=== PATIENT | female | born 1965 | race Two or more races ===

== ENCOUNTER 2019-01-24 12:55 | Inpatient (IN) | payer OTHER ==
[2019-01-24] VITALS (9 sets, daily range): BP systolic 136–182; BP diastolic 85–100
[~2019-01-24] VITALS: Ht 167.6 cm; Wt 63.5 kg
[~2019-01-24 12:55] MED LIST: HYDROCHLOROTH12.5 MG ORAL; NORVASC10 MG ORAL; ceFAZolin 1gm IVPB IVPB ONE; celeBREX 200mg Cap **SURGERY PATIENTS ONLY ORAL ONE; oxyCONTIN 20mg tab ORAL ONE
[2019-01-24] MEDS ORDERED: NeoSporin Gu Irrig 1ml Amp IRRIG ONE (15:14)
[2019-01-24] MEDS ORDERED: Bacitracin 50000 Units Vial ONE (15:14)
[2019-01-24] MEDS ORDERED: oxyCONTIN 20mg tab ORAL ONE (15:15)
[2019-01-24] MEDS ORDERED: celeBREX 200mg Cap **SURGERY PATIENTS ONLY ORAL ONE (15:15)
[2019-01-24] MEDS ORDERED: LR 1000ml 1,000 ML IVLG SCH (15:21)
[2019-01-24] MEDS ORDERED: Sodium Chloride 10ml vial INJ ONE (15:27)
[2019-01-24] MEDS ORDERED: Lidocaine 1% MPF 10mg/ml 5ml ONE (15:27)
[2019-01-24] MEDS ORDERED: Ropivacaine 5mg/ml Vial 30ml INJ ONE (15:27)
[2019-01-24] MEDS ORDERED: Dexamethasone 4mg/ml vial ONE (15:27)
[2019-01-24] MEDS ORDERED: HYDROcodone/Acetamin 7.5/325 tab ORAL PRN (15:30)
[2019-01-24] MEDS ORDERED: Ketorolac 30mg Inj IV PRN ×2 (15:30)
[2019-01-24] MEDS ORDERED: HYDROcodone/Acetamin 5/325 tab ORAL PRN (15:30)
[2019-01-24] MEDS ORDERED: DiphenhydrAMINE 50mg/ml Inj IVP PRN (15:30)
[2019-01-24] MEDS ORDERED: Hydromorphone 0.5mg/0.5ml inj IVP PRN (15:30)
[2019-01-24] MEDS ORDERED: Labetalol 5mg/ml 20ml vial IV PRN (15:30)
[2019-01-24] MEDS ORDERED: Metoclopramide 10mg/2ml Inj IVP PRN (15:30)
[2019-01-24] MEDS ORDERED: Midazolam 2mg/2ml Inj IVP PRN (15:30)
[2019-01-24] MEDS ORDERED: Meperidine 50mg/ml Inj(FOR RIGORS ONLY) IVP PRN (15:30)
[2019-01-24] MEDS ORDERED: fentaNYL 100 mcg/2 mL IV PRN (15:30)
[2019-01-24] MEDS ORDERED: LORazepam Inj 2mg/ml 1ml IV PRN (15:30)
[2019-01-24] MEDS ORDERED: Atropine Sulfate 0.4mg/ml inj IVP PRN (15:30)
[2019-01-24] MEDS ORDERED: oxyCODONE HCL/Acetaminophen 5/325mg ORAL PRN (15:30)
--- NOTE | 2019-01-24 15:31 | Anethesia Preoperative Eval ---
Anesthesia Pre-op PMH/ROS General Date of Evaluation: Jan 24, 2019 Anesthesiologist: Marcelo ASA Score: ASA 2 Mallampati Score Class I : Soft palate, uvula, fauces, pillars visible Class II: Soft palate, uvula, fauces visible Class III: Soft palate, base of uvula visible Class IV: Only hard plate visible Mallampati Classification: Class II Surgeon: Tico Diagnosis: R Knee Pain Surgical Procedure: R Knee Total Arthroplasty Anesthesia History: none Family History: no anesthesia problems Allergies: Coded Allergies: No Known Allergies (Unverified , 01/23/19) Medications: see eMAR Patient NPO?: Yes NPO Date: Jan 24, 2019 NPO Time: 2100 Past Medical History Cardiovascular: Reports: HTN Gastrointestinal/Genitourinary: Reports: GERD Neurologic/Psychiatric: Reports: other - Headaches Hematology/Immune: Reports: anemia Anesthesia Pre-op Phys. Exam Physician Exam Last Vital Signs Date Time Temp Pulse Resp B/P (MAP) Pulse Ox O2 Delivery O2 Flow Rate FiO2 01/24/19 13:39 Room Air 01/24/19 13:38 97.7 57 18 136/85 (102) 98 Constitutional: NAD Neurologic: CN 2-12 intact Cardiovascular: RRR Respiratory: CTA Gastrointestinal: S/NT/ND Airway Exam Mallampati Score: Class II MO: limited ROM: limited Teeth: intact Anesthesia Pre-op A/P Risk Assessment & Plan Assessment: ASA 2 Plan: GA, FemAdd Block, SED Status Change Before Surgery: No Pre-Antibiotics Dru Gram Ancef IV Given Within 1 Hr of Incision: Yes Time Given: 16:24 Kyle Robertson MD Jan 24, 2019 15:31
--- NOTE | 2019-01-24 15:57 | Pre-Procedure Note/Attestation ---
Pre-Procedure Note/Attestation Complete Prior to Procedure Planned Procedure: right Procedure Narrative: knee replacement Indications for Procedure Pre-Operative Diagnosis: right knee posttraumactic arthritis Attestation I attest that I discussed the nature of the procedure; its benefits; risks and complications; and alternatives (and the risks and benefits of such alternatives ), prior to the procedure, with the patient (or the patient's legal senior customer service representative). I attest that, if there was a reasonable possibility of needing a blood transfusion, the patient (or the patient's legal senior customer service representative) was given the [facility] standardized written summary, pursuant to the [place] Blood Safety Act ([place] Health and Safety Code # 1645, as amended). I attest that I re-evaluated the patient just prior to the surgery and that there has been no change in the patient's H&P, except as documented below: Pro Doshi MD Jan 24, 2019 15:57
--- NOTE | 2019-01-24 15:57 | Operative Note - PDOC ---
Operative Note Operative Note Pre-op Diagnosis: right knee posttraumactic arthritis Procedure: see op report Post-op Diagnosis: same as pre-op plus Operative Findings: consistent w/pre-op dx studies Anesthesia: regional Specimen: none Complications: none Condition: stable Estimated Blood Loss: none Implant(s) used?: Yes Pro Doshi MD Jan 24, 2019 15:57
[2019-01-24] MEDS ORDERED: LR 1000ml ONE (16:00)
[2019-01-24] MEDS ORDERED: Propofol 200mg/20ml IV ONE (16:00)
[2019-01-24] MEDS ORDERED: oxyCODONE 5mg IR tab ORAL PRN (16:00)
[2019-01-24] MEDS ORDERED: Morphine Sulfate 2mg/ml Inj(IV/IM USE ONLY) IVP PRN (16:00)
[2019-01-24] MEDS ORDERED: Morphine Sulfate 4mg/ml Inj (IV USE ONLY) IVP PRN (16:00)
[2019-01-24] MEDS ORDERED: NS Irrig 1000ml ONE (16:00)
[2019-01-24] MEDS ORDERED: Sterile Water Irrig 1000ml IRRIG ONE (16:00)
[2019-01-24] MEDS ORDERED: Milk of Magnesia 30ml Ud ORAL PRN (16:00)
[2019-01-24] MEDS ORDERED: NS Irrig 1000ml IRRIG ONE ×2 (16:33→17:09)
[2019-01-24] MEDS ORDERED: Tranexamic Acid 1,000 MG in NS 65 ML IV ONE (16:45)
[2019-01-24] MEDS ORDERED: Tranexamic Acid 1,000 MG in NS 55 ML IV ONE (16:45)
--- NOTE | 2019-01-24 16:46 | 48 Hour Post Anesthesia Eval ---
Post Anesthesia Evaluation Procedure: R Knee Total Arthroplasty Date of Evaluation: Jan 24, 2019 Time of Evaluation: 20:23 Blood Pressure Systolic: 143 0: 84 Pulse Rate: 68 Respiratory Rate: 18 Temperature (Fahrenheit): 98.6 O2 Sat by Pulse Oximetry: 99 Airway: patent Nausea: No Vomiting: No Pain Intensity: 3 Hydration Status: adequate Cardiopulmonary Status: Stable Mental Status/LOC: patient returned to baseline Follow-up Care/Observations: 0 Post-Anesthesia Complications: 0 Follow-up care needed: N/A Kyle Robertson MD Jan 24, 2019 16:46
--- NOTE | 2019-01-24 16:46 | Immediate Post-Op Evaluation ---
Immediate Post-Op Evalulation Immediate Post-Op Evalulation Procedure: R Knee Total Arthroplasty Date of Evaluation: Jan 24, 2019 Time of Evaluation: 18:18 IV Fluids: 800 LR Blood Products: 0 Estimated Blood Loss: 40 Urinary Output: 200 Blood Pressure Systolic: 177 Blood Pressure Diastolic: 104 Pulse Rate: 82 Respiratory Rate: 16 O2 Sat by Pulse Oximetry: 100 Temperature (Fahrenheit): 100 Pain Score (1-10): 3 Nausea: No Vomiting: No Complications 0 Patient Status: awake, reacts, patent, extubated, none Hydration Status: adequate Dru Gram Ancef IV Given Within 1 Hr of Incision: Yes Time Given: 16:24 Kyle Robertson MD Jan 24, 2019 16:46
[2019-01-24] MEDS ORDERED: Bupivacaine w/Epi 0.5% 30ml Vial INJ ONE (16:50)
[2019-01-24] MEDS ORDERED: Ketorolac 30mg Inj ONE (16:50)
[2019-01-24] MEDS ORDERED: Kenalog-10 5ml Inj ONE (16:50)
[2019-01-24] MEDS ORDERED: Duramorph PF 5mg/10ml amp ONE (16:50)
[2019-01-24] MEDS ORDERED: fentaNYL 100 mcg/2 mL ONE (17:02)
[2019-01-24] MEDS ORDERED: Duramorph PF 5mg/10ml amp IT ONE (18:33)
--- NOTE | 2019-01-24 20:30 | NUR ---
NURSES NOTE: Received patient on Med-surge floor at approximately 2000. Pt is A/O x 4, answers all questions appropriately, able to let needs be known. No outward s/s of distress. Breathing pattern is even and unlabored. Initial vital signs stable, and 30 minute VS check stable as well. Patient contains sensory motion abilities and circulation is adequate. All PO meds given. Ivs started and/or infused. D5 1/2 NS 20 KCL started at 75cc/hr. Ancef 2 grams administered according to eMAR with no adverse reactions noted. Patient denies pain after receiving OxyContin 20mg administered as part of routine med. Patient oriented to surroundings-bed, call light, and room amenities. Pt advised on IS. Patient will continue to be monitored. Patient left in stable condition.
[2019-01-24] MEDS: D5 1/2NS w/KCl 20mEq 1,000 ML IV SCH (20:54)
[2019-01-24] MEDS: Docusate 100mg cap ORAL SCH (21:00)
[2019-01-24] MEDS: Acetaminophen 500mg (ES) tab ORAL SCH (21:00)
[2019-01-24] MEDS: oxyCONTIN 20mg tab ORAL SCH (21:05)
[2019-01-24] MEDS ORDERED: Docusate 100mg cap ORAL SCH (22:45)
[2019-01-24] MEDS ORDERED: Acetaminophen 500mg (ES) tab ORAL SCH (22:45)
--- NOTE | 2019-01-25 00:15 | Consultation ---
DATE OF CONSULTATION: 01/24/2019 CONSULTING PHYSICIAN: Fortino Schmitz M.D. HISTORY OF PRESENT ILLNESS: I was asked to evaluate this patient in postop consultation. The patient was seen and evaluated in preoperative consultation. This is an unfortunate female who status post total knee arthroplasty. She denies any nausea, vomiting. She denies any fever, chills. Latest blood pressure 137/72, 60, afebrile. PAST MEDICAL HISTORY: Hypertension. PAST SURGICAL HISTORY: None. MEDICATIONS: ALLERGIES: No known drug allergies. FAMILY HISTORY: Noncontributory. PHYSICAL EXAMINATION: VITAL SIGNS: As mentioned above. NECK: No JVD. No carotid bruit. HEART: S1, S2. Regular rate. LUNGS: Clear. ABDOMEN: Soft. EXTREMITIES: No clubbing or cyanosis. ASSESSMENT: 1. Status post left total knee arthroplasty. 2. Preoperative blood loss. 3. Check CBC in the morning. 4. Start blood pressure medication with hold parameters. No blood pressure medications to be given if systolic blood pressure less than 130. 5. Physical therapy. 6. Occupational therapy. 7. DVT prophylaxis. 8. Check CBC, BMP in the morning. 9. Case was discussed with the nursing staff at [facility]. Dr. Doshi, I thank you for privilege of this consult, interesting consult is being really appreciated. Fortino Schmitz M.D. DR: JOSY JOB#: [id number] CC: Pro Doshi M.D.; Fax#: [phone]
--- NOTE | 2019-01-25 01:54 | Operative Note - Dictated ---
DATE OF OPERATION: 01/24/2019 PREOPERATIVE DIAGNOSIS: Right knee arthritis aggravated by accident. POSTOPERATIVE DIAGNOSIS: Right knee arthritis aggravated by accident. PROCEDURE: Right total knee arthroplasty. SURGEON: Pro Doshi M.D. ANESTHESIA: Femoral adductor with general. INDICATIONS FOR PROCEDURE: The patient is a pleasant female, who was doing relatively well until she was involved in a substantial accident. She subsequently had aggravation of arthritis to the point where she was having significant difficulty with activities of daily living. She failed conservative treatment and elected to undergo right total knee arthroplasty. The risks, limitations, expectations, and complications of the procedure were discussed in detail. All questions were addressed. DESCRIPTION OF PROCEDURE: After informed consent obtained, the patient was brought to the operating room. The patient was placed under femoral adductor anesthesia. Felix catheter was placed. Ancef was administered. Time-out was performed. Anterior skin incision was then made. The knee was flexed and distal femur was well evaluated. There was a tear of the posterior horn of medial meniscus. There was a tear of the lateral meniscus. There was an intra-articular loose body in the lateral gutter. Interestingly, the lateral compartment had areas where it had bone on the distal femoral condyle. There are chondral flaps, which subchondral bone. It was felt that intraoperative findings were consistent with acute injury to the knee and the underlying arthritis aggravated by the accident. At this point, the distal femoral cutting block was then placed. Distal femur was resected. Posterior anterior cutting guide was placed and measured size 4. Size 4 cutting block external rotator based on Gila's line and the epicondylar axis. The anterior and posterior chamfer cuts were then made. The proximal tibia was well visualized. Proximal tibia was resected with a 4 femur and 4 tibial base plate, 9 mm insert. Knee came out to full extension, had good stability to full extension, 10 degrees of flexion, 90 degrees of flexion with great tracking of the patella. At this point, the patella was appropriately externally rotated and was prepared. Once this was done, the patella was everted, measured 22 mm. Freehand resection was performed. A 31 mm patellar component was placed and recalibrated 22 mm. At this point, the cement was prepared. Implants were impacted into place. Excess cement was removed. Arthrotomy site was closed with #1 Vicryl suture, 2-0 Vicryl suture, and 3-0 Monocryl sutures. Steri-Strips and sterile dressing were applied. The patient was awoken and taken to recovery room with stable vital signs. ESTIMATED BLOOD LOSS: None. COMPLICATIONS: None. SPECIMENS: None. IMPLANTS: Size 4 femoral component, size 4 tibial base plate, 9 mm tibial insert, and 31 mm patellar component. Pro Doshi M.D. DR: Juvencio JOB#: [id number] CC:
--- NOTE | 2019-01-25 07:41 | NUR ---
HAND-OFF: Report given to Nurse Hany Michele Patient in stable condition.
[2019-01-25 07:45] LABS: HEMATOCRIT 44.2 % (37.0-47.0); HEMOGLOBIN 14.9 G/DL (12.0-16.0); MEAN CORPUSCULAR VOLUME 86 FL (80-99); PLATELET COUNT 270 K/UL (150-450); RED BLOOD COUNT 5.17 M/UL (4.20-5.40); RED CELL DISTRIBUTION WIDTH 11.6 % (11.6-14.8); WHITE BLOOD COUNT 12.7 K/UL (4.8-10.8)
--- NOTE | 2019-01-25 08:02 | NUR ---
NURSE NOTES: Pt did not eat well this am states she is nauseated. Leg elevated encouraged to move digits. All pulses palpable, to femoral, popliteal and dorsal area. Has complete sensation strength 4/5 , rt leg. Bandage clean and intact. States she prefers ice over pain medication at this time . Dx of migraine, states that her pain is primarily from her migraines. Pt will be encouraged to ambulate with PT
[2019-01-25] MEDS: hydroCHLOROthiazide 12.5mg TAB ORAL SCH (08:36)
[2019-01-25] MEDS: celeBREX 200mg Cap **SURGERY PATIENTS ONLY ORAL SCH (08:36)
[2019-01-25] MEDS: Docusate 100mg cap ORAL SCH ×3 (08:37→14:05)
[2019-01-25] MEDS: oxyCONTIN 20mg tab ORAL SCH ×2 (08:37→21:31)
[2019-01-25] MEDS: Acetaminophen 500mg (ES) tab ORAL SCH ×3 (08:38→18:32)
[2019-01-25] MEDS: ceFAZolin sod 2 GM in D5W 110 ML IV SCH ×3 (08:39)
[2019-01-25 08:50] LABS: ALBUMIN 3.7 G/DL (3.4-5.0); ANION GAP 10 mmol/L (5-15); CALCIUM 8.9 MG/DL (8.5-10.1); CARBON DIOXIDE 24 MMOL/L (21-32); CHLORIDE 105 MMOL/L (98-107); POTASSIUM 3.6 MMOL/L (3.5-5.1); SODIUM 139 MMOL/L (136-145)
[2019-01-25] MEDS ORDERED: hydroCHLOROthiazide 12.5mg TAB ORAL SCH (09:00)
[2019-01-25 09:22] LABS: ALANINE AMINOTRANSFERASE 30 U/L (12-78); ALKALINE PHOSPHATASE 80 U/L (46-116); ASPARTATE AMINO TRANSFERASE 22 U/L (15-37); BILIRUBIN,TOTAL 0.7 MG/DL (0.2-1.0); BLOOD UREA NITROGEN 10 mg/dL (7-18); CREATININE 0.7 MG/DL (0.55-1.30)
[2019-01-25] MEDS: D5 1/2NS w/KCl 20mEq 1,000 ML IV SCH ×2 (09:50→12:36)
[2019-01-25 12:00] VITALS: BP 134/88
--- NOTE | 2019-01-25 12:52 | NUR ---
NURSE NOTES: Pt states when she attempts to drink or eat she feels nauseated, refused Zofran at this time. States she will attempt to eat in small increments. Fluids continued at this time . Denies pain to knee. Will administer due medications at 1400 due to verbalizations of nausea.
--- NOTE | 2019-01-25 14:34 | NUR ---
CASE MANAGEMENT: INITIAL REVIEW 53 YO F [facility]ENTED [facility] PMHx: HTN. ANEMIA. MCNULTY. SI:RIGHT KNEE OA T 97.7 HR 57 RR 18 B/P 136/85 SATS 98% ON RA LABS: WBC 12.7 IS: OR MEDS PATIENT ADMITTED TO MED/SURG 01/24/2019 @ 1557 DCP: PATIENT TO BE DISCHARGED TO HOME ONCE MEDICALLY CLEARED. PLAN OF CARE: DATE OF OPERATION: 01/24/2019 PREOPERATIVE DIAGNOSIS: Right knee arthritis aggravated by accident. POSTOPERATIVE DIAGNOSIS: Right knee arthritis aggravated by accident. PROCEDURE: Right total knee arthroplasty. 01/25/2019 SI:POD#1 Right total knee arthroplasty. T 98.1 HR 85 RR 20 B/P 134/88 SATS 100% ON 3L/NC GLU 157 IS:IVF @ 75 mL/HR OXYCONTIN PO Q12H CELEBREX PO QD PROTONIX PO QD NORVASC PO QD HCTZ PO QD MED/SURG Addendum: 01/25/19 at 1638 by Kaitlin Robles CM INTERQUAL MET
--- NOTE | 2019-01-25 15:51 | NUR ---
NURSE NOTES: Pt provided with another dose of Zofarn, believes that Neurontin made her nauseated and faint. States she was on Neurontin years ago and it gave her the same symptoms. Pt refused afternoon dose. Pt in bed exercising with physical therapy
[2019-01-25 16:00] VITALS: BP 132/76
--- NOTE | 2019-01-25 16:10 | NUR ---
PT Note PT aly completed, treatment initiated. Patient has muscle weakness with decreased right knee ROM, requiring assist in mobility. Patient also c/o feeling nauseated; became dizzy and diaphoretic during gait training. Patient needs PT to increase her ROM and muscle strength to improve her functional mobility to enable her to return to [facility]. Addendum: 01/25/19 at 1611 by ANANDA SWANSON PT Amended: Links added.
--- NOTE | 2019-01-25 18:45 | NUR ---
NURSE NOTES:Dr Doshi phoned made aware that pt has refused Neurontin states that the Neurontin makes her dizzy, and nauseated, Pt states she was on Neurontin previously and states she had the same symptoms. Assisted to restroom, able to use walker correctly. Ate well for dinner 75 %
--- NOTE | 2019-01-25 18:56 | NUR ---
NURSE NOTES: returned call gave orders to DC Neurontin, gave orders to discharge pt tomorrow.
--- NOTE | 2019-01-25 19:09 | NUR ---
NURSE NOTES: Pt nauseated most of shift nausea relief occurred after 2 dose of Zofran. Denies pain to right knee, did verbalize through out shift mild headache, Tylenol , cold wash cloth , and dim lighting provided
[2019-01-25 20:00] VITALS: BP 132/74
--- NOTE | 2019-01-25 23:19 | NUR ---
NURSES NOTE: Received pt in bed, A/O X4, able to let needs be known. No outward s/s of distress noted. VS wnl, pt on oxygen 1L/min. Patient states she feels pain 5/10 in R knee. OxyContin 20mg given at 2130- effective. Denies N/V. R leg elevated, refilled ice pack, placed on R knee. States ice pack gives great relief from discomfort. Iv patent, fluids running, 75cc/hr. Advised to call for help when wanting to ambulate. Pt set to be discharged 01/26. Will continue to monitor patient, bed at lowest level, call light within reach.
[2019-01-26] VITALS: BP 127/67
[2019-01-26 04:00] VITALS: BP 130/73
--- NOTE | 2019-01-26 06:26 | NUR ---
NURSES NOTE: Pt declines N/V through out entire NOC shift. Addendum: 01/26/19 at 3210 by Nancy Colón RN jenny N/V
--- NOTE | 2019-01-26 07:36 | NUR ---
HAND OFF: Report given to Marissa Vargas RN. Patient left in stable condition.
--- NOTE | 2019-01-26 07:40 | NUR ---
NURSE NOTES: WALKING ROUNDS DONE WITH OUTGOING RN. PATIENT AWAKE IN BED. RLE SURGICAL SITE WITH WAGNER REYNOLDS ON, C/D/I. NEURO CHECKS WNL, NO EDEMA NOTED.DENIES PAIN. QUESTIONS ANSWERED, NEEDS MET. DISCUSSED PLAN OF CARE FOR THE DAY.VERBALIZED UNDERSTANDING. BED IN LOW AND LOCKED POSITION. CALL LIGHT WITHIN REACH.
[2019-01-26 08:00] VITALS: BP 113/68
[2019-01-26] MEDS: Acetaminophen 500mg (ES) tab ORAL SCH (08:55)
[2019-01-26] MEDS: Docusate 100mg cap ORAL SCH ×2 (08:55→12:39)
[2019-01-26] MEDS: celeBREX 200mg Cap **SURGERY PATIENTS ONLY ORAL SCH (08:55)
[2019-01-26 08:56] VITALS: BP 113/68
[2019-01-26] MEDS: hydroCHLOROthiazide 12.5mg TAB ORAL SCH (08:56)
[2019-01-26] MEDS: oxyCONTIN 20mg tab ORAL SCH (08:56)
[2019-01-26] MEDS ORDERED: NORCO 10-325 T1 EACH ORAL (10:11)
[2019-01-26] MEDS ORDERED: NAPROXEN250 MG ORAL ×2 (10:13→10:14)
[2019-01-26] MEDS ORDERED: NEURONTIN100 MG ORAL (10:14)
[2019-01-26] MEDS ORDERED: ASPIRIN325 MG ORAL (10:15)
[2019-01-26 10:41] LABS: HEMATOCRIT 40.7 % (37.0-47.0); HEMOGLOBIN 13.9 G/DL (12.0-16.0); MEAN CORPUSCULAR VOLUME 86 FL (80-99); PLATELET COUNT 257 K/UL (150-450); RED BLOOD COUNT 4.75 M/UL (4.20-5.40); RED CELL DISTRIBUTION WIDTH 11.6 % (11.6-14.8); WHITE BLOOD COUNT 17.8 K/UL (4.8-10.8)
--- NOTE | 2019-01-26 11:00 | NUR ---
NURSE NOTES: CBC RESULTED LATE; WBC 17.8 PATIENT HAS DC ORDER FOR HOME. PLACED CALL TO DR. MONDRAGON. REPEAT CBC ORDERED AND DRAWN. PATIENT MADE AWARE OF DC DELAY.
--- NOTE | 2019-01-26 12:16 | NUR ---
CASE MANAGEMENT: REVIEW 01/26/2019 SI:POD#2 Right total knee arthroplasty. T 98.9 HR 63 RR 16 B/P 127/67 SATS 95% ON RA LABS: NONE TODAY IS:IVF @ 75 mL/HR OXYCONTIN PO Q12H CELEBREX PO QD PROTONIX PO QD NORVASC PO QD HCTZ PO QD MED/SURG
[2019-01-26 12:24] LABS: BASOPHILS % (AUTO) 0.3 % (0.0-2.0); HEMATOCRIT 40.1 % (37.0-47.0); HEMOGLOBIN 13.3 G/DL (12.0-16.0); LYMPHOCYTES % (AUTO) 6.4 % (20.0-45.0); MEAN CORPUSCULAR VOLUME 86 FL (80-99); MONOCYTES % (AUTO) 8.8 % (1.0-10.0); NEUTROPHILS % (AUTO) 84.4 % (45.0-75.0); PLATELET COUNT 242 K/UL (150-450); RED BLOOD COUNT 4.68 M/UL (4.20-5.40); RED CELL DISTRIBUTION WIDTH 11.6 % (11.6-14.8); WHITE BLOOD COUNT 17.1 K/UL (4.8-10.8)
--- NOTE | 2019-01-26 12:56 | NUR ---
NURSE NOTES: CBC RESULTED 2ND TIME; WBC 17.[address] MONDRAGON. PATIENT OK TO BE DISCHARGED AND TO F/U IN 1-2 WEEKS IN OFFICE DISCUSSED. DC INSTRUCTIONS REVIEWED WITH PT AND SON. RX AND PATIENT EDUCATION GIVEN. VERBALIZED UNDERSTANDING. ALL BELONGINGS WITH PATIENT. TRANSPORTED PATIENT TO CAR BY .
--- NOTE | 2019-01-27 11:54 | Discharge Summary ---
Discharge Summary Hospital Course Date of Admission Jan 24, 2019 at 19:28 Date of Discharge Jan 26, 2019 at 12:53 Admitting Diagnosis Right knee arthritis aggravated by accident. Reason for Hospitalization: Elective surgery HPI Goldie Eric is a 53 year old female who was admitted on Jan 24, 2019 at 19: 28 for Right Knee Osteoarthritis. Patient was admitted for elective surgery. The patient was doing relatively well , until she was involved in a substantial accident. She subsequently had aggravation of arthritis to the point , where she was having significant difficulty with activities of daily living. She failed conservative treatment and elected to undergo right total knee arthroplasty. Consultations Dr Schmitz -CELESTE Procedures s/p 01/24/[address] Doshi Right total knee arthroplasty. Hospital Course status post surgery course of recovery uneventful initially IV fluids s/p perioperative antibiotics remained stable incision with dressing : clean, dry, and intact pain management was addressed and pain was controlled remained hemodynamically stable ambulated with PT fall precautions maintained; safe for ambulation DVT prophylaxis with SCD and WAGNER provided use of incentive spirometry was encouraged while in the bed tolerated diet , initial IV fluids discontinued GI prophylaxis provided antiemetics were on board as needed blood pressure was managed with Amlodipine and remained stable hemoglobin and hematocrit remained table voided freely bowel regimen instituted patient was stable for discharge discharge instructions provided follow up with surgeon in 1-2 weeks at the office FINAL DIAGNOSES Right knee osteoarthritis , aggravated by accident s/p Right total knee arthroplasty Hypertension Discharge Medications Continued Medications: Amlodipine Besylate (Norvasc) 10 Mg Tablet 10 MG ORAL DAILY, TAB (This prescription has been renewed) Aspirin* (Aspirin*) 325 Mg Tablet 325 MG ORAL DAILY, TAB (This prescription has been renewed) Gabapentin* (Neurontin*) 100 Mg Capsule 100 MG ORAL THREE TIMES A DAY, #15 CAP 0 Refills (This prescription has been renewed) Hydrochlorothiazide* (Hydrochlorothiazide*) 12.5 Mg Tablet 25 MG ORAL DAILY, TAB Hydrocodone Bit/Acetaminophen 10-325* ([place] 10-325*) 1 Each Tablet 1 TAB ORAL Q6H PRN for For Pain, #10 TAB 0 Refills (This prescription has been renewed) PRN PAIN Naproxen* (Naprosyn*) 250 Mg Tablet 500 MG ORAL TWICE A DAY, #60 TAB 0 Refills (This prescription has been renewed) Discontinued Medications: Naproxen* (Naprosyn*) 250 Mg Tablet 250 MG ORAL TWICE A DAY, #60 TAB 0 Refills Discharge Condition Upon Discharge: stable Discharge Disposition Patient was discharged to Home (01) Discharge Instructions Discharge Instructions Special Instructions I have been assigned to complete a D/C Summary on this account. I was not involved in the patient management Stefanie Way NP Jan 27, 2019 11:54
== END 2019-01-26 12:53 | disposition home or self-care (01) | DRG 470 ==
LOC: SUR 12:55 → EDSTATUS 17:15 → 3E 19:28
PROC: 0SRC0J9 Replacement of Right Knee Joint with Synthetic Substitute, Cemented, Open Approach (ICD-10-PCS; principal; 2019-01-24 17:15)
DX: M17.31 Unilateral post-traumatic osteoarthritis, right knee (principal); I10 Essential (primary) hypertension
CPT/HCPCS: 36415; 80053; 85007; 85025; 86850; 86900; 86901; 87081; J2405